=== PATIENT | male | born 1960 | race African-American/Black ===

== ENCOUNTER 2017-11-15 19:17 | Emergency (ER) | payer BC, SELFPAY ==
[2017-11-15] MEDS ORDERED: cloNIDine 0.1 MG TAB ONE (19:38)
== END 2017-11-15 20:10 ==
LOC: NAV ERS 19:17
DX: M79.675 Pain in left toe(s) (principal); M79.672 Pain in left foot; I10 Essential (primary) hypertension; V89.2XXA Person injured in unspecified motor-vehicle accident, traffic, initial encounter
CPT/HCPCS: 99283